=== PATIENT | female | born 1975 | race Caucasian/White ===

== ENCOUNTER 2024-09-27 12:15 | Emergency (ER) | payer OTHER ==
[2024-09-27 12:26] VITALS: BP 117/98; PULSE 88; RESP 18; TEMP 97.9; BMI 28.7
== END 2024-09-27 13:21 | disposition home or self-care (01) ==
LOC: JERFT 12:15
DX: R51.9 Headache, unspecified (principal); J02.9 Acute pharyngitis, unspecified; R05.9 Cough, unspecified; M79.10 Myalgia, unspecified site; R68.83 Chills (without fever); R09.82 Postnasal drip; J06.9 Acute upper respiratory infection, unspecified; Z20.822 Contact with and (suspected) exposure to COVID-19
CPT/HCPCS: 0241U-QW; 99283-25